=== PATIENT | female | born 1995 | race Caucasian/White ===

== ENCOUNTER → 2020-09-21 11:17 | Outpatient (BNVA) | payer OTHER, SELFPAY | PROVIDERS: PCP Family Medicine Adult Medicine; Visit Provider Family Medicine Adult Medicine | DX: Z00.00 Encounter for general adult medical examination without abnormal findings (principal); Z83.3 Family history of diabetes mellitus; Z82.49 Family history of ischemic heart disease and other diseases of the circulatory system | CPT/HCPCS: 80053; 80061; 83036; 85025 ==